=== PATIENT | female | born 1960 | race American Indian/Alaskan Native ===

== ENCOUNTER 2017-02-19 04:11 | Emergency (ER) | payer MEDICAID ==
[2017-02-19 12:12] VITALS: BP 202/108
[2017-02-19] MEDS ORDERED: CATAPRES PO ONE (12:52)
--- NOTE | 2017-02-19 12:57 | Emergency Department Report ---
<ISRAEL BRADNT Bonifacio - Last Filed: 02/19/17 16:11> ED Psych HPI - General Chief Complaint: Medical Clearance Stated Complaint: GENERAL ILLNESS Time Seen by Provider: 02/19/17 12:43 - Related Data Allergies Allergy/AdvReac Type Severity Reaction Status Date / Time No Known Allergies Allergy Unverified 02/19/17 06:39 ED Review of Systems ROS: Stated complaint: GENERAL ILLNESS Other details as noted in HPI ED Course Vital Signs 02/19/17 02/19/17 06:34 12:10 Temperature 98.2 F 98.2 F Pulse Rate 84 66 Respiratory 18 14 Rate Blood Pressure 202/120 202/108 [Left] O2 Sat by Pulse 100 Oximetry ED Medical Decision Making - Lab Data Result diagrams: 02/19/17 14:36 02/19/17 14:36 Critical care attestation.: If time is entered above; I have spent that time in minutes in the direct care of this critically ill patient, excluding procedure time. ED Disposition Clinical Impression: Malignant hypertension, Depression, Anxiety Disposition: -01 TO HOME OR SELFCARE Is pt being admited?: No Does the pt Need Aspirin: No Condition: Stable Instructions: Hypertension (ED) Additional Instructions: Please follow up with your provider on discharge. Referrals: PRIMARY CARE, [Primary Care Provider] - 3-5 Days Time of Disposition: 16:12 <DU MURPHY - Last Filed: 02/22/17 16:14> ED Psych HPI - General Source: patient, family Mode of arrival: Ambulatory - History of Present Illness Initial Comments: Patient is 56 years old female history of hypertension and unknown psychiatric abnormalities. Patient presented to the ER complaining SYMPTOMS of testing on since April 2016 when she had sex with stranger at that time. The patient stated that she went to labor twice since then. She denied any suicidal or homicidal ideation. ED Review of Systems Comment: All other systems reviewed and negative Constitutional: denies: chills, diaphoresis, fever Respiratory: denies: cough, shortness of breath, SOB with exertion Cardiovascular: denies: chest pain, palpitations, dyspnea on exertion, edema, syncope Gastrointestinal: denies: abdominal pain, nausea, diarrhea, constipation, hematemesis Neurological: denies: headache, weakness, numbness, paresthesias ED Past Medical Hx - Past Medical History Previous Medical History?: No Hx Hypertension: Yes Hx Psychiatric Treatment: Yes - Surgical History Past Surgical History?: No - Social History Smoking Status: Current Every Day Smoker Substance Use Type: None ED Physical Exam - General Limitations: No Limitations General appearance: alert, in no apparent distress, anxious - Head Head exam: Present: atraumatic, normocephalic, normal inspection - Eye Eye exam: Present: normal appearance, PERRL - ENT ENT exam: Present: normal exam, normal orophraynx, mucous membranes moist - Neck Neck exam: Present: normal inspection, full ROM. Absent: tenderness, meningismus, lymphadenopathy, thyromegaly - Respiratory Respiratory exam: Present: normal lung sounds bilaterally. Absent: respiratory distress, wheezes, rales, rhonchi, stridor, chest wall tenderness, accessory muscle use, decreased breath sounds, prolonged expiratory - Cardiovascular Cardiovascular Exam: Present: regular rate, normal rhythm, normal heart sounds - GI/Abdominal GI/Abdominal exam: Present: soft, normal bowel sounds. Absent: distended, tenderness, guarding, rebound, rigid, organomegaly, mass, bruit, pulsatile mass , hernia - Extremities Exam Extremities exam: Present: normal inspection, full ROM, normal capillary refill - Back Exam Back exam: Present: normal inspection, full ROM. Absent: tenderness, CVA tenderness (R), CVA tenderness (L), muscle spasm, paraspinal tenderness, vertebral tenderness, rash noted - Neurological Exam Neurological exam: Present: alert, oriented X3, CN II-XII intact, normal gait, reflexes normal. Absent: motor sensory deficit - Psychiatric Psychiatric exam: Present: other (dilution). Absent: depressed, agitated, anxious, flat affect, manic, homicidal ideation, suicidal ideation - Skin Skin exam: Present: warm, intact, normal color. Absent: cyanosis, diaphoretic, erythema, urticaria, vesicles ED Medical Decision Making - Lab Data Result diagrams: 02/19/17 14:36 02/19/17 14:36 ED Disposition Is pt being admited?: No
[2017-02-19 14:00] LABS: Bilirubin,Urine NEG (Negative); Blood,Urine MOD (Negative); Color,Urine Yellow (Yellow); Mucus,Urine FEW /HPF; Nitrite,Urine NEG (Negative); Protein,Urine <15 mg/dL mg/dL (Negative); Urobilinogen,Urine < 2.0 mg/dL (<2.0)
[2017-02-19 14:09] LABS: Amphetamine Screen,Urine PRESUMPTIVE NEGATIVE; Benzodiazepines Screen,Urine PRESUMPTIVE NEGATIVE; Cocaine Screen,Urine PRESUMPTIVE NEGATIVE; Methadone Screen,Urine PRESUMPTIVE NEGATIVE; Opiate Screen,Urine PRESUMPTIVE NEGATIVE
[2017-02-19 14:54] LABS: Cannabinoid Screen,Urine PRESUMPTIVE POSITIVE
[2017-02-19 15:37] LABS: Basophils % (Auto) 0.5 % (0.0-1.8); Eosinophils # (Auto) 0.2 K/mm3 (0.0-0.4); Eosinophils % (Auto) 3.8 % (0.0-4.3); Hematocrit 41.4 % (30.3-42.9); Hemoglobin 13.5 gm/dl (10.1-14.3); Lymphocytes # (Auto) 2.3 K/mm3 (1.2-5.4); Lymphocytes % (Auto) 46.8 % (13.4-35.0); Mean Corpuscular HGB Conc 33 % (30-34); Mean Corpuscular Hemoglobin 27 pg (28-32); Mean Corpuscular Volume 84 fl (79-97); Monocytes # (Auto) 0.5 K/mm3 (0.0-0.8); Monocytes % (Auto) 9.3 % (0.0-7.3); Platelet Count 211 K/mm3 (140-440); Red Blood Count 4.91 M/mm3 (3.65-5.03); Red Cell Distribution Width 15.1 % (13.2-15.2)
[2017-02-19 15:46] LABS: Alanine Aminotransferase 13 units/L (7-56); BUN/Creatinine Ratio 22; Blood Urea Nitrogen 13 mg/dL (7-17); Calcium 8.9 mg/dL (8.4-10.2); Hemolysis Index 16
== END 2017-02-19 16:20 | disposition home or self-care (01) ==
LOC: ED 04:11
DX: F32.9 Major depressive disorder, single episode, unspecified (principal); F41.9 Anxiety disorder, unspecified; I10 Essential (primary) hypertension
CPT/HCPCS: 36415; 80053; 80307; 81001; 84703; 85025; 99284; G0480; 80320